=== PATIENT | female | born 1960 | race Caucasian/White ===

== ENCOUNTER 2020-05-21 13:53 | Outpatient (CLI) | payer OTHER, SELFPAY ==
--- NOTE | 2020-05-21 14:03 | XR_ITS ---
WS: [id number] SCREENING DEXA SCAN [email or web address] CLINICAL INFORMATION: OSTEOPOROSIS, WELL ADULT EXAM COMPARISON: FINDINGS: The L1-L4 bone mineral density measures 0.927 g/cm2. This corresponds to a T score score of -2.1 and Z score of -2.2. Left femoral neck bone mineral density measures 0.970 g/cm2. This corresponds to a T score of -0.3 an d Z score of -0.3. Right femoral neck bone mineral density measures 1.052 g/cm2. This corresponds to a T score 0.4of and Z score of 0.4. Mean femoral neck bone mineral density measures 1.011 g/cm2. This corresponds to a T score of 0.0 and Z score of 0.0. XR/XR DEXA axial skeleton* [id number] IMPRESSION: Osteopenia lumbar spine. Normal bone mineralization femoral necks. Patient's FRAX calculated 10 year probability for major osteoporotic fracture i s 5.6 % and osteoporotic hip fracture is 0.1%.
== END 2020-05-21 13:54 | disposition home or self-care (01) ==
LOC: RADWPI 13:57
PROVIDERS: PCP Family Medicine; Visit Provider Family Medicine
DX: Z00.00 Encounter for general adult medical examination without abnormal findings (principal); M81.0 Age-related osteoporosis without current pathological fracture; M85.88 Other specified disorders of bone density and structure, other site
CPT/HCPCS: 77080

== ENCOUNTER 2020-10-22 08:11 | Outpatient (CLI) | payer SELFPAY ==
[2020-10-22 08:38] LABS: HF Add Manual Diff No
[2020-10-22 08:40] LABS: Basophils # 0.1 10^3/uL (0.0-0.1); Basophils % 1.4 %; Eosinophils # 0.2 10^3/uL (0.0-0.8); Eosinophils % 2.7 %; Hematocrit 39.5 % (37.0-47.0); Hemoglobin 12.2 g/dL (11.5-15.3); Lymphocytes # 2.7 10^3/uL (0.8-4.8); Lymphocytes % 31.3 %; Mean Corpuscular HGB Conc 30.9 g/dL (30.0-36.0); Mean Corpuscular Hemoglobin 25.4 pg (28.0-34.0); Mean Corpuscular Volume 82.1 fL (81-99); Monocytes # 0.8 10^3/uL (0.2-0.9); Monocytes % 8.9 %; Neutrophils # 4.74 10^3/uL (1.8-7.7); Neutrophils % 55.2 %; Nucleated Red Blood Cells % 0 %; Platelet Count 274 10^3/cmm (130-400); Red Blood Count 4.81 10^6/uL (4.1-5.3); Red Cell Distribution Width 13.2 % (12.1-15.1); White Blood Count 8.6 10^3/uL (4.0-10.0)
[2020-10-22 09:19] LABS: Estmated Average Glucose 131; Hemoglobin A1C 6.2 % (4.0-6.0)
[2020-10-22 09:26] LABS: 25 Hydroxy Vitamin D 23 ng/mL (30-100); Alanine Aminotransferase 21 U/L (0-33); Albumin Level 4.1 g/dL (3.5-5.2); Alkaline Phosphatase 109 IU/L (35-105); Aspartate Amino Transferase 18 U/L (0-32); Blood Urea Nitrogen 16 mg/dL (6-20); Calcium 8.7 mg/dL (8.5-10.5); Carbon Dioxide 28 mmol/L (22-29); Chloride 104 mmol/L (98-107); Chol HDL Ratio 3.67 mg/dL (0.0-4.40); Cholesterol 187 mg/dL (0-200); Globulin 2.5 g/dL (1.3-4.6); Glomerular Filtration Rate 102.7 mL/min (90-130); Glucose 109 mg/dL (65-115); HDL Cholesterol 51 mg/dL (60-100); LDL Cholesterol Calculated 108 mg/dL (50-129); LDL HDL Ratio 2.12 RATIO (0.00-3.22); Osmolality Calculated 294 mOsm/kg (285-295); Sodium 141 mmol/L (136-145); Thyroid Stimulating Hormone 5.53 uIU/mL (0.27-4.20); Total Bilirubin 0.3 mg/dL (0.15-1.2); Total Protein 6.6 g/dL (6.6-8.7); Triglycerides 142 mg/dL (0-150)
== END 2020-10-22 08:12 | disposition home or self-care (01) ==
LOC: LAB 08:15
PROVIDERS: PCP Family Medicine; Visit Provider Dermatology
DX: Z13.9 Encounter for screening, unspecified (principal)

== ENCOUNTER 2020-11-08 12:44 | Outpatient (CLI) | payer OTHER, SELFPAY ==
--- NOTE | 2020-11-08 12:56 | MM_ITS ---
WS: [id number] BILATERAL SCREENING DIGITAL MAMMOGRAM WITH CAD HISTORY: Screening. COMPARISON: 10/09/2019 and 05/20/2018 Bilateral CC and MLO views submitted. Computer aided detection analyzed. Breast composition: There are scattered areas of fibroglandular density. No suspicious masses, microc alcifications or architectural distortion. MM/[id number] IMPRESSION: BI-RADS: 1-Negative FOLLOW UP: 1 Year Follow-up
== END 2020-11-08 12:45 | disposition home or self-care (01) ==
LOC: RADSHAW 12:46
PROVIDERS: PCP Family Medicine; Visit Provider Family Medicine
DX: Z12.31 Encounter for screening mammogram for malignant neoplasm of breast (principal)
CPT/HCPCS: 77067

== ENCOUNTER 2021-04-03 10:21 | Outpatient (CLI) | payer OTHER, SELFPAY | END 2021-04-03 10:22 | disposition home or self-care (01) | LOC: SPT 10:21 | PROVIDERS: PCP Family Medicine; Visit Provider Podiatrist Foot & Ankle Surgery | DX: Z46.89 Encounter for fitting and adjustment of other specified devices (principal); M19.079 Primary osteoarthritis, unspecified ankle and foot; M79.671 Pain in right foot; M79.672 Pain in left foot | CPT/HCPCS: L3030 ==

== ENCOUNTER 2022-01-09 11:51 | Outpatient (CLI) | payer OTHER, SELFPAY ==
--- NOTE | 2022-01-09 12:00 | MM_ITS ---
WS: [id number] . BILATERAL SCREENING DIGITAL TOMOSYNTHESIS MAMMOGRAM WITH CAD HISTORY: SCREENING COMPARISON: 11/08/2020 and 10/09/2019 Bilateral CC and MLO views with tomosynthesis and synthetic mammography submitted. Computer aided det ection analyzed. Breast composition: There are scattered areas of fibroglandular density. No suspicious masses, microc alcifications or architectural distortion. MM/[id number] IMPRESSION: BI-RADS: 1-Negative FOLLOW UP: 1 Year Follow-up
== END 2022-01-09 11:52 | disposition home or self-care (01) ==
PROVIDERS: PCP Family Medicine; Visit Provider Family Medicine
DX: Z12.31 Encounter for screening mammogram for malignant neoplasm of breast (principal)
CPT/HCPCS: 77063; 77067

== ENCOUNTER → 2023-01-20 08:23 | Outpatient (BNVA) | payer OTHER, SELFPAY | PROVIDERS: PCP Family Medicine; Visit Provider Clinical Nurse Specialist Adult Health | DX: J06.9 Acute upper respiratory infection, unspecified (principal); Z20.822 Contact with and (suspected) exposure to COVID-19 | CPT/HCPCS: 87400; 87426 ==

== ENCOUNTER 2023-03-11 11:21 | Outpatient (CLI) | payer OTHER, SELFPAY ==
--- NOTE | 2023-03-11 11:33 | MM_ITS ---
WS: [id number] Bilateral screening 3D tomosynthesis digital mammogram, 03/11/2023 Clinical Data: SCREENING Comparison: 01/09/2022, 11/08/2020, 10/09/2019, 05/20/2018, 12/07/2016, 03/22/2014, 03/14/2014, 04/18/2012, , 05/02/2010, 04/12/2009, 04/12/2008, 04/21/2007, 04/19/2006. Findings: The breast parenchymal pattern shows fibroglandular tissue. No spiculated masses or clustered calcifi cations are seen. There are no secondary signs of carcinoma. Impression: 1. Negative bilateral mammogram unchanged. 2. Recommend annual screening mammograms. MM/[place] [id number] BIRADS: 1-Negative FOLLOW UP: 1 Year Follow-up The CAD aircraft delivery checker was used.
== END 2023-03-11 11:22 | disposition home or self-care (01) ==
LOC: RAD 11:21
PROVIDERS: PCP Family Medicine; Visit Provider Family Medicine
DX: Z12.31 Encounter for screening mammogram for malignant neoplasm of breast (principal)
CPT/HCPCS: 77063; 77067

== ENCOUNTER → 2023-07-13 08:11 | Outpatient (BNVA) | payer SELFPAY | PROVIDERS: PCP Family Medicine; Visit Provider Dermatology | DX: Z01.89 Encounter for other specified special examinations (principal) ==

== ENCOUNTER 2024-01-14 10:59 | Outpatient (CLI) | payer OTHER, SELFPAY ==
--- NOTE | 2024-01-14 11:04 | XR_ITS ---
WS: [id number] XR chest 2V* [id number] REASON FOR EXAM: expiratory wheeze FINDINGS: Moderate tortuosity of the thoracic aorta. The heart is at the upper limits of normal in size. Calcified granulomas disease bilaterally. No acute pulmonary parenchymal or pleural abnormality. Moderate dextroscoliosis of the lumbar spine with mild degenerative spondylosis. Mild biconcave compr ession deformities T10-T12. XR/XR chest 2V* [id number] IMPRESSION: No acute chest abnormality.
== END 2024-01-14 11:00 | disposition home or self-care (01) ==
LOC: RAD 11:00
PROVIDERS: PCP Family Medicine; Visit Provider Clinical Nurse Specialist Adult Health
DX: R06.2 Wheezing (principal); R59.0 Localized enlarged lymph nodes
CPT/HCPCS: 71046; 85007; 85027

== ENCOUNTER 2024-04-05 14:09 | Outpatient (CLI) | payer OTHER, SELFPAY ==
--- NOTE | 2024-04-05 14:12 | XR_ITS ---
WS: [id number] XR knee RT 3V* [id number] REASON FOR EXAM: M25.569 - Pain in unspecified knee FINDINGS: No fracture or focal bone lesion. The medial knee joint space is intact and relatively well preserved. The lateral knee joint space demonstrates mild narrowing with mild osteophytosis. There is moderate narrowing of the patellofemoral joint space with moderate subchondral sclerosis and mild osteophytosis. XR/XR knee RT 3V* [id number] IMPRESSION: Mild osteoarthritis of the right knee as above.
== END 2024-04-05 14:10 | disposition home or self-care (01) ==
LOC: RAD 14:12
PROVIDERS: PCP Family Medicine; Visit Provider Family Medicine
DX: M25.569 Pain in unspecified knee (principal)
CPT/HCPCS: 73562